=== PATIENT | female | born 1945 | race Caucasian/White ===

== ENCOUNTER 2017-01-24 12:47 | Outpatient (CLI) | payer MEDICARE, OTHER | END 2017-01-24 12:48 | disposition home or self-care (01) | DX: R10.13 Epigastric pain (principal); R16.1 Splenomegaly, not elsewhere classified ==

== ENCOUNTER 2017-06-17 15:23 | Outpatient (CLI) | payer MEDICARE, OTHER ==
[2017-06-17 16:30] LABS: BASOPHILS % (AUTO) 0.4 %; EOSINOPHILS # (AUTO) 0.1 10^3/uL (0.0-0.7); EOSINOPHILS % (AUTO) 1.2 %; HCT - HEMATOCRIT 41.6 % (37.0-47.0); HGB - HEMOGLOBIN 13.8 g/dL (12.0-16.0); LYMPHOCYTES # (AUTO) 1.5 10^3/uL (1.5-3.5); LYMPHOCYTES % (AUTO) 18.2 %; MEAN CORPUSCULAR HEMOGLOBIN 28.1 pg (27.0-31.0); MEAN CORPUSCULAR HGB CONC 33.1 g/dL (32.0-36.0); MEAN CORPUSCULAR VOLUME 85.2 fL (81.0-99.0); MEAN PLATELET VOLUME 7.1 fL (7.9-10.8); MONOCYTES # (AUTO) 0.5 10^3/uL (0.0-1.0); MONOCYTES % (AUTO) 5.7 %; NEUTROPHILS # (AUTO) 6.3 10^3/uL (1.5-6.6); NEUTROPHILS % (AUTO) 74.5 %; NUCLEATED RED BLOOD CELLS AUTO 0.1 /100WBC; RED BLOOD COUNT 4.89 10^6/uL (4.20-5.40); RED CELL DISTRIBUTION WIDTH 14.8 % (12.0-15.0); UNCORRECTED WHITE BLOOD COUNT 8.4 x10^3/uL; WHITE BLOOD COUNT 8.4 x10^3/uL (4.8-10.8)
[2017-06-17 16:39] LABS: CALCIUM 9.2 mg/dL (8.5-10.3); CREATININE 0.9 mg/dL (0.4-1.0); POTASSIUM 4.2 mmol/L (3.5-5.0)
== END 2017-06-17 15:24 | disposition home or self-care (01) ==
LOC: LAB 15:23
PROVIDERS: ATTEND Orthopaedic Surgery
DX: Z01.818 Encounter for other preprocedural examination (principal); M17.12 Unilateral primary osteoarthritis, left knee
CPT/HCPCS: 36415; 80048; 85025; 93005

== ENCOUNTER 2017-06-19 09:10 | Outpatient (CLI) | payer MEDICARE, OTHER | END 2017-06-19 09:11 | disposition home or self-care (01) | LOC: LAB.N 09:10 | PROVIDERS: ATTEND Orthopaedic Surgery | DX: M17.12 Unilateral primary osteoarthritis, left knee (principal) | CPT/HCPCS: 87640 ==

== ENCOUNTER 2017-06-23 10:05 | Inpatient (IN) | payer MEDICARE, OTHER ==
[~2017-06-23 10:05] MED LIST: ceFAZolin 2 GM/50 ML 50 ML IV ONE
[2017-06-23] MEDS ORDERED: LACTATED RINGERS 1,000 ML IV ONE ×2 (10:40→12:27)
[2017-06-23] MEDS ORDERED: SCOPOLAMINE PATCH TOP ONE (10:50)
[2017-06-23] MEDS ORDERED: fentaNYL 100 MCG/2 ML VIAL IVP ONE (11:45)
[2017-06-23] MEDS ORDERED: MIDAZOLAM 2 MG/2 ML VIAL IVP ONE (11:45)
[2017-06-23] MEDS ORDERED: TRANEXAMIC ACID 1,000 MG/10 ML VIAL IV ONE (11:45)
[2017-06-23] MEDS ORDERED: ACETAMINOPHEN 1,000 MG/100 ML 100 ML IV ONE (11:45)
[2017-06-23] MEDS ORDERED: BUPIVACAINE 0.5%-EPI 1:200000 PF 30 ML VIAL SUBQ ONE (13:15)
[2017-06-23] MEDS ORDERED: MORPHINE PF 10 MG/10 ML AMP SUBQ ONE (13:16)
[2017-06-23] MEDS ORDERED: KETOROLAC 30 MG/ML VIAL IM ONE (13:18)
[2017-06-23] MEDS ORDERED: EPINEPHrine 1 MG/ML AMP IM ONE (13:18)
[2017-06-23] MEDS ORDERED: ACETAMINOPHEN 1,000 MG/100 ML 100 ML IV PRN (13:44)
[2017-06-23] MEDS ORDERED: BISACODYL 10 MG SUPP PR PRN (13:44)
[2017-06-23] MEDS ORDERED: ONDANSETRON 4 MG/2 ML VIAL IVP PRN (13:44)
[2017-06-23] MEDS ORDERED: PROCHLORPERAZINE 10 MG/2 ML VIAL IVP PRN (13:44)
[2017-06-23] MEDS ORDERED: SENNA 8.6 MG TABLET PO PRN (13:44)
[2017-06-23] MEDS ORDERED: SODIUM CHLORIDE FLUSH 0.9% 10 ML SYRINGE IVP PRN (13:44)
--- NOTE | 2017-06-23 13:44 | OPERATIVE REPORT ---
Operative Report - General Admit Date: 06/23/17 Procedure Date: 06/23/17 Planned Procedure: Left TKA Pre-Op Diagnosis: Left knee DJD Procedure Performed: Left TKA Post Op Diagnosis: same - Procedure Note Primary Surgeon: kiko Anesthesia Technique: Spinal IV Fluids (mL): 25 Drain/Tube Type: Hemovac
[2017-06-23] MEDS: SODIUM CHLORIDE 0.45% 1,000 ML IV SCH (16:06)
[2017-06-23] MEDS: SODIUM CHLORIDE FLUSH 0.9% 10 ML SYRINGE IVP SCH ×2 (16:06→20:32)
[2017-06-23] MEDS: ASPIRIN 325 MG TABLET PO SCH (16:06)
[2017-06-23] MEDS: ceFAZolin 2 GM/50 ML 50 ML IV SCH (16:07)
--- NOTE | 2017-06-23 17:40 | XRAY Report ---
TWO VIEW LEFT KNEE: 06/23/2017 CLINICAL INDICATION: Postop. Frontal and lateral views of the left knee demonstrate a total knee replacement in place. Suprapatel lar drain is present. There is no evidence of acute fracture or immediate hardware complication. IMPRESSION: EXPECTED POSTOPERATIVE APPEARANCE OF LEFT KNEE REPLACEMENT. JOB #: [id number] EXT JOB #:
--- NOTE | 2017-06-23 18:27 | OPERATIVE REPORT ---
DATE OF SURGERY: 06/23/2017 00:00:00 PREOPERATIVE DIAGNOSIS: Left knee osteoarthritis. POSTOPERATIVE DIAGNOSIS: Left knee osteoarthritis. PROCEDURE: Left total knee replacement arthroplasty. OPERATING SURGEON: Yuri Valdivia MD ANESTHESIA: General and spinal by Gerda __Tarun . INDICATIONS FOR SURGERY: Tigist is a 71-year-old female with progressive severe osteoarthritis of her left knee, predominantly involving the patellofemoral joint, but also the medial compartment of her knee. She has an increasing flexion contracture of her knee and has failed nonoperative treatment. FINDINGS AT SURGERY: The patient's knee joint showed fusion and loose bodies, which were small and cartilaginous. Her bone density was actually fairly good. She had hypertrophic spurring around her femur, her tibia, and her patella. The patient had overgrowth in the notch, but had intact cruciate ligaments. Her menisci, medial and lateral, had remained intact. She had spotty wear on the femur and weightbearing areas, but complete loss of cartilage in the femoral groove and on the patella. DESCRIPTION OF OPERATIVE PROCEDURE: The patient was taken to operating room. She was given a spinal anesthetic, followed by sedation and MAC. In the supine position on the OR table, with the tourniquet up on her thigh, the limb was sterilely prepped and draped in the standard fashion. After a surgical time-out , the tourniquet was inflated, and an incision was performed in a curved medial 8-inch incision and a medial parapatellar incision, with reflection of capsule off the proximal medial tibia and resection of the infrapatellar fat pad for exposure. The menisci were excised, as was the anterior crucial ligament. A central medullary hole was made in the femur after appropriate flexion and placement, and the distal cutting block was applied to cut the femur. Following this, sizing was accomplished for a size 6 left femur. The 4-in-1 cutting block was applied, and these cuts were sequentially made. Small bone fragments were removed, and the central medullary hole was plugged with bone fragments. The tibia was then brought into exposure with retraction, and the residual posterior horns of the menisci were completely excised. The residual ACL was removed, and the posterior osteophytes were removed. The external cutting block was applied and the proximal resection performed using a saw. The tibia was prepared for placement of a size D implant, broaching and drilling, then broaching for the stem, and then performing a trial reduction with a 12 mm insert being stable, showing full range of motion and no laxity. The trial reduction was completed. The knee joint was prepared for cementing of the implants, but before this, the patella was resected down from a 20 mm thickness to 14 mm for reimplantation of a 29 mm diameter all-poly patella. After thorough cleansing of the surfaces, the implants were cemented into place beginning with the tibial baseplate, followed by the femoral component, with then insertion of the tibial poly and finally cementing of the patellar component. Excess cement was removed at each stage, and the knee was ultimately held in extension as the cement hardened. The patient required a very small lateral release of her patella. After this, a drain was placed and closure undertaken with interrupted FiberWire closure of the medial retinaculum and capsule, followed by 0 and 2-0 Vicryl subcutaneous closure, and Monocryl closure of the skin. The patient had a sterile dressing applied and was taken to the recovery room in stable condition. ESTIMATED BLOOD LOSS: Minimal. COMPLICATIONS: None. SPONGE AND NEEDLE COUNTS: Correct. JOB #: [id number] EXT JOB #:[id number] MTDD
[2017-06-23] MEDS: GABAPENTIN 300 MG CAPSULE PO SCH (20:31)
[2017-06-23] MEDS: PANTOPRAZOLE 40 MG TABLET PO SCH (20:32)
[2017-06-23] MEDS: SERTRALINE 50 MG TABLET PO SCH (20:32)
[2017-06-24] MEDS: ceFAZolin 2 GM/50 ML 50 ML IV SCH (00:50)
[2017-06-24] MEDS: oxyCOD/ACETAMIN 5 MG/325 MG TABLET PO PRN ×4 (01:09→17:46)
[2017-06-24] MEDS: SODIUM CHLORIDE 0.45% 1,000 ML IV SCH ×2 (01:59→04:17)
[2017-06-24] MEDS: SODIUM CHLORIDE FLUSH 0.9% 10 ML SYRINGE IVP SCH ×3 (05:10→20:10)
[2017-06-24 05:57] LABS: CALCIUM 8.7 mg/dL (8.5-10.3); CREATININE 0.8 mg/dL (0.4-1.0); POTASSIUM 4.1 mmol/L (3.5-5.0)
[2017-06-24 05:59] LABS: HCT - HEMATOCRIT 37.4 % (37.0-47.0); HGB - HEMOGLOBIN 12.4 g/dL (12.0-16.0)
--- NOTE | 2017-06-24 06:59 | PROVIDER PROGRESS NOTE ---
Subjective - General Admit Date: 06/23/17 Procedure Date: 06/23/17 Post Op Days: 1 Procedure Performed: Left TKA - Review of Systems Wound/Incisions: positive: Healing well, Dressing dry and intact Musculoskeletal: positive: Joint pain Objective - Patient Data Reviewed Vital Signs: Yes Vital Signs: Vital Signs x48h Temp Pulse Resp BP Pulse Ox 06/24/17 04:10 36.9 C 71 18 136/50 H 97 06/23/17 23:46 36.9 C 75 18 136/49 H 95 Weight: Weight 06/22/17 06/23/17 06/24/17 23:59 23:59 23:59 Weight (kg) 103 kg Intake & Output: Intake and Output Totals x24h 06/22/17 06/23/17 06/24/17 23:59 23:59 23:59 Intake Total 2416 2392 Output Total 1702 8375 Balance 711 -433 - Lab Results Lab Results: 06/24/17 05:23 06/24/17 05:23 Other Lab Results: Lab Results x24hrs 06/24/17 06/24/17 Range/Units 05:23 05:23 Hgb 12.4 (12.0-16.0) g/dL Hct 37.4 (37.0-47.0) % Sodium 135 (135-145) mmol/L Potassium 4.1 (3.5-5.0) mmol/L Chloride 103 (101-111) mmol/L Carbon Dioxide 25 (21-32) mmol/L Anion Gap 7.0 (6-13) BUN 10 (6-20) mg/dL Creatinine 0.8 (0.4-1.0) mg/dL Estimated GFR (MDRD) 71 L (>89) Glucose 150 H (70-100) mg/dL Calcium 8.7 (8.5-10.3) mg/dL - Imaging Results Radiology Imaging: positive: EMP read indepedently - Current Medications Current Medications: Current Medications Generic Name Dose Route Start Last Admin Trade Name Freq PRN Reason Stop Dose Admin Aspirin 325 mg 06/23/17 17:00 06/23/17 16:06 Shruthi PO 07/14/17 16:59 325 mg BIDWM RYLAN Administration Gabapentin 300 mg 06/23/17 21:00 06/23/17 20:31 Neurontin PO 300 mg BID RYLAN Administration Sodium Chloride 1,000 mls @ 100 mls/hr 06/23/17 14:00 06/24/17 04:17 Normal Saline 0.45% IV 100 mls/hr .Q10H RYLAN Administration Oxycodone/Acetaminophen 1 tab 06/23/17 13:44 06/24/17 06:15 Percocet 5 Mg/325 Mg PO 1 tab Q4HR PRN Administration PAIN Pantoprazole Sodium 40 mg 06/23/17 21:00 06/23/17 20:32 Protonix PO 40 mg BID RYLAN Administration Sertraline HCl 100 mg 06/23/17 21:00 06/23/17 20:32 Zoloft PO 100 mg BID RYLAN Administration Sodium Chloride 10 ml 06/23/17 14:00 06/24/17 05:10 Normal Saline Flush 0.9% IVP Not Given Q8HR RYLAN - Physical Exam Wound/Incisions: positive: Dressing dry and intact Skin: positive: Warm, Dry Extremities: positive: Joint swelling Neurologic/Psychiatric: positive: Oriented x3, Motor nml, Sensation nml, Mood/ affect nml Impression/Plan - Problem List Problem List: POD #1 Begin PT mobilization, bruno out, IV to lock.
[2017-06-24] MEDS: GABAPENTIN 300 MG CAPSULE PO SCH ×2 (08:47→20:10)
[2017-06-24] MEDS: PANTOPRAZOLE 40 MG TABLET PO SCH ×2 (08:47→20:10)
[2017-06-24] MEDS: amLODIPine 5 MG TABLET PO SCH (08:47)
[2017-06-24] MEDS: SERTRALINE 50 MG TABLET PO SCH ×2 (08:47→20:10)
[2017-06-24] MEDS: ASPIRIN 325 MG TABLET PO SCH ×2 (08:47→17:46)
[2017-06-24] MEDS: ARIPiprazole 5 MG TABLET PO SCH (08:47)
[2017-06-24] MEDS: HYDROmorphone 1 MG/ML SYRINGE IVP PRN ×2 (14:28→23:55)
[2017-06-24] MEDS: POLYETHYLENE GLYCOL 3350 17 GM PACKET PO SCH (17:46)
[2017-06-24] MEDS ORDERED: POLYETHYLENE GLYCOL 3350 17 GM PACKET ONE (17:48)
[2017-06-25] MEDS: oxyCOD/ACETAMIN 5 MG/325 MG TABLET PO PRN ×4 (06:22→21:16)
[2017-06-25] MEDS: SODIUM CHLORIDE FLUSH 0.9% 10 ML SYRINGE IVP SCH ×3 (06:23→21:16)
--- NOTE | 2017-06-25 07:50 | PROVIDER PROGRESS NOTE ---
Subjective - General Admit Date: 06/23/17 Procedure Date: 06/23/17 Post Op Days: 2 Procedure Performed: Left TKA - Review of Systems Wound/Incisions: positive: Dressing dry and intact Musculoskeletal: positive: Joint pain Objective - Patient Data Vital Signs: Vital Signs x48h Temp Pulse Resp BP Pulse Ox 06/25/17 07:30 36.9 C 85 16 142/43 H 95 Weight: Weight 06/23/17 06/24/17 06/25/17 23:59 23:59 23:59 Weight (kg) 103 kg Intake & Output: Intake and Output Totals x24h 06/23/17 06/24/17 06/25/17 23:59 23:59 23:59 Intake Total 2416 4292 500 Output Total 1703 1705 Balance 711 -463 500 - Lab Results Lab Results: 06/24/17 05:23 06/24/17 05:23 - Current Medications Current Medications: Current Medications Generic Name Dose Route Start Last Admin Trade Name Freq PRN Reason Stop Dose Admin Amlodipine Besylate 5 mg 06/24/17 09:00 06/24/17 08:47 Norvasc PO 5 mg DAILY RYLAN Administration Aripiprazole 2 mg 06/24/17 09:00 06/24/17 08:47 Abilify PO 2 mg DAILY RYLAN Administration Aspirin 325 mg 06/23/17 17:00 06/24/17 17:46 Shruthi PO 07/14/17 16:59 325 mg BIDWM RYLAN Administration Gabapentin 300 mg 06/23/17 21:00 06/24/17 20:10 Neurontin PO 300 mg BID RYLAN Administration Hydromorphone HCl 1 mg 06/23/17 13:44 06/24/17 23:55 Dilaudid Inj IVP 1 mg Q2HR PRN Administration Breakthrough Pain Oxycodone/Acetaminophen 1 tab 06/23/17 13:44 06/25/17 06:22 Percocet 5 Mg/325 Mg PO 1 tab Q4HR PRN Administration PAIN Pantoprazole Sodium 40 mg 06/23/17 21:00 06/24/17 20:10 Protonix PO 40 mg BID RYLAN Administration Polyethylene Glycol 17 gm 06/24/17 18:00 06/24/17 17:46 Miralax PO 17 gm DAILY RYLAN Administration Sertraline HCl 100 mg 06/23/17 21:00 06/24/17 20:10 Zoloft PO 100 mg BID RYLAN Administration Sodium Chloride 10 ml 06/23/17 14:00 06/25/17 06:23 Normal Saline Flush 0.9% IVP 10 ml Q8HR RYLAN Administration Sodium Chloride 10 ml 06/23/17 13:44 06/24/17 23:55 Normal Saline Flush 0.9% IVP 10 ml PRN PRN Administration NEEDED PER PROVIDER ORDERS
[2017-06-25] MEDS ORDERED: ZOLPIDEM 5 MG TABLET PO PRN (07:56)
[2017-06-25] MEDS: ACETAMINOPHEN 325 MG TABLET PO PRN ×2 (08:34→13:08)
[2017-06-25] MEDS: SERTRALINE 50 MG TABLET PO SCH ×2 (08:34→21:15)
[2017-06-25] MEDS: POLYETHYLENE GLYCOL 3350 17 GM PACKET PO SCH (08:34)
[2017-06-25] MEDS: GABAPENTIN 300 MG CAPSULE PO SCH ×2 (08:34→21:15)
[2017-06-25] MEDS: ASPIRIN 325 MG TABLET PO SCH ×2 (08:34→18:04)
[2017-06-25] MEDS: ARIPiprazole 5 MG TABLET PO SCH (08:34)
[2017-06-25] MEDS: amLODIPine 5 MG TABLET PO SCH (08:34)
[2017-06-25] MEDS: PANTOPRAZOLE 40 MG TABLET PO SCH ×2 (08:34→21:16)
[2017-06-25] MEDS: HYDROmorphone 1 MG/ML SYRINGE IVP PRN ×2 (10:00→18:04)
[2017-06-26] MEDS: ACETAMINOPHEN 325 MG TABLET PO PRN (00:19)
[2017-06-26] MEDS: SODIUM CHLORIDE FLUSH 0.9% 10 ML SYRINGE IVP SCH (06:44)
[2017-06-26] MEDS: oxyCOD/ACETAMIN 5 MG/325 MG TABLET PO PRN ×2 (06:45→13:26)
[2017-06-26 07:32] VITALS: BP 137/57
[2017-06-26] MEDS: GABAPENTIN 300 MG CAPSULE PO SCH (08:20)
[2017-06-26] MEDS: amLODIPine 5 MG TABLET PO SCH (08:20)
[2017-06-26] MEDS: ASPIRIN 325 MG TABLET PO SCH (08:20)
[2017-06-26] MEDS: SERTRALINE 50 MG TABLET PO SCH (08:20)
[2017-06-26] MEDS: POLYETHYLENE GLYCOL 3350 17 GM PACKET PO SCH (08:20)
[2017-06-26] MEDS: ARIPiprazole 5 MG TABLET PO SCH (08:20)
[2017-06-26] MEDS: PANTOPRAZOLE 40 MG TABLET PO SCH (08:20)
--- NOTE | 2017-06-26 10:34 | Discharge Plan ---
Discharge Plan Disposition: Home, Self Care Condition: Good Prescriptions: oxyCODONE/ACET 5/325 [Percocet 5 mg/325 mg] 1 tab PO Q4HR PRN #30 tablet PRN Reason: Pain Aspirin [Shruthi] 325 mg PO BIDWM #30 tablet Polyethylene Glycol 3350 [Miralax] 17 gm PO DAILY #20 packet Diet: Regular Activity Restrictions: Wt Bearing as Tolerated Shower Restrictions: Yes (wound kept dry) Driving Restrictions: Yes (no driving) Assistance Devices: Walker Weight Bearing: Other (Weight bear as tolerated L. LE) Instruction Topics: Knee Replace Total, Knee Replace, Knee Replace Total Dc Follow-Up Care: Outpatient Rehab - PT No Smoking: If you smoke, Please STOP! Call for help. Follow-up with: Bree Can PA-C [Primary Care Provider] - Yuri Valdivia MD [Provider Admit Priv/Credential] -
--- NOTE | 2017-06-29 16:20 | DISCHARGE SUMMARY ---
DATE OF ADMISSION: 06/23/2017 DATE OF DISCHARGE: 06/26/2017 ADMISSION DIAGNOSIS: Left knee osteoarthritis. OPERATIVE PROCEDURE: On 06/23/2017 left total knee replacement arthroplasty. HISTORY OF PRESENT ILLNESS: The patient is a 71-year-old female with end-stage osteoarthritis of her left knee, who presented for elective total knee arthroplasty. The patient had failed conservative ca re and had significant functional deficits because of knee pain and arthritis. The patient's prior me dical history and exam are documented in her admission record. HOSPITAL COURSE: The patient was admitted, underwent the surgery, and tolerated it well. Postoperativ reji, the patient was placed on the medical/surgical floor, receiving standard care post total knee ar throplasty, including IV antibiotics, pain medication, and early physical therapy. At the time of dis charge, the patient was tolerating p.o. pain medication. She was tolerating subcutaneous Lovenox for DVT prophylaxis, and her wound was healing well without any evidence of wound breakdown, complication , or infection. At this point, she was discharged to home to follow up in the clinic within a week an d have home rehab scheduled after discharge. JOB #: [id number] EXT JOB #:[id number]
== END 2017-06-26 13:32 | disposition home or self-care (01) | DRG 470 ==
LOC: MS3 10:05 → MS2 12:49
PROVIDERS: ADMIT Orthopaedic Surgery; ATTEND Orthopaedic Surgery
PROC: 0SRD0J9 Replacement of Left Knee Joint with Synthetic Substitute, Cemented, Open Approach (ICD-10-PCS; principal; 2017-06-23 11:00)
DX: M17.0 Bilateral primary osteoarthritis of knee (principal); I47.1 Supraventricular tachycardia; J84.10 Pulmonary fibrosis, unspecified; I10 Essential (primary) hypertension; K21.9 Gastro-esophageal reflux disease without esophagitis; F32.9 Major depressive disorder, single episode, unspecified; K52.9 Noninfective gastroenteritis and colitis, unspecified; Z87.891 Personal history of nicotine dependence; Z86.19 Personal history of other infectious and parasitic diseases
CPT/HCPCS: 36415; 80048; 85014; 85018

== ENCOUNTER 2017-07-25 08:58 | Emergency (ER) | payer MEDICARE, OTHER ==
--- NOTE | 2017-07-25 09:22 | ED Physician Documentation ---
PD HPI LOWER EXT INJURY - Stated complaint Stated Complaint: R HEEL PAIN - History obtained from History obtained from: Patient - History of Present Illness PD HPI LOW EXT INJURY LOCATION: Right, Ankle (heel). No: Sole / plantar Type of injury: No: Fall, Twist Timing - onset: How many weeks ago Timing - duration: Weeks Timing - details: Gradual onset, Still present (has increased the past several days to marked pain with walking, almost unable to walk due to it.) Improved by: Other (not with ortho boot use). No: Meds Worsened by: Moving, Palpating, Other (walking) Associated symptoms: Swelling (back of heel). No: Weakness, Numbness, Discolored Similar symptoms before: Diagnosis (achilles tendonitis many years ago and improved with cortisone injection and using ankle boot.) Recently seen: Not recently seen Review of Systems Constitutional: denies: Fever, Chills Nose: denies: Rhinorrhea / runny nose, Congestion Throat: denies: Sore throat Skin: denies: Rash, Lesions PD PAST MEDICAL HISTORY - Past Medical History Cardiovascular: Hypertension Respiratory: Pneumonia Neuro: Headache/migraine, Motion sickness Endocrine/Autoimmune: None GI: GERD, Hiatal hernia, Other : Incontinence, Other HEENT: Chronic vision loss, Other Psych: Depression Musculoskeletal: Osteoarthritis, Other (no gout) Derm: None - Past Surgical History General: Colonoscopy, EGD /RECRUITING ASSOCIATE: Tubal ligation, Other HEENT: Cataracts - Present Medications Home Medications: Ambulatory Orders Medication Instructions Recorded Confirmed Aripiprazole [Abilify] 2 mg PO DAILY 04/10/15 06/23/17 Meloxicam [Mobic] 7.5 mg PO BID 04/10/15 06/17/17 Sertraline HCl [Zoloft] 100 mg PO BID 04/10/15 06/23/17 amLODIPine [Norvasc] 5 mg PO DAILY 04/10/15 06/23/17 Ciclesonide [Omnaris] 1 spray SHRADDHA DAILY 04/11/15 06/23/17 Zolpidem [Ambien] 10 mg PO DAILY 04/11/15 06/23/17 Acetaminophen 500 mg PO DAILY 06/17/17 06/23/17 Albuterol Sulf [Ventolin Hfa 1 puffs IH DAILY PRN 06/17/17 06/23/17 Inhaler] Fluticasone 44 Mcg [Flovent] 1 puffs IH DAILY PRN 06/17/17 06/23/17 Gabapentin 300 mg PO BID 06/17/17 06/23/17 Montelukast [Singulair] 10 mg PO DAILY 06/17/17 06/23/17 Pantoprazole [Protonix] 40 mg PO BID 06/17/17 06/23/17 Prochlorperazine [Compazine] 5 mg PO DAILY PRN 06/17/17 06/23/17 Aspirin [Shruthi] 325 mg PO BIDWM #30 tablet 06/26/17 Polyethylene Glycol 3350 [Miralax] 17 gm PO DAILY #20 packet 06/26/17 oxyCODONE/ACET 5/325 [Percocet 5 1 tab PO Q4HR PRN #30 tablet 06/26/17 mg/325 mg] Oxycodone HCl/Acetaminophen 1 each PO Q6H PRN #8 tablet 07/25/17 [Percocet 5-325 mg Tablet] - Allergies Allergies/Adverse Reactions: Allergies Allergy/AdvReac Type Severity Reaction Status Date / Time citalopram hydrobromide * Allergy Unknown Unknown Verified 06/17/17 14:43 [From Celexa] SUSHMA Inhibitors Allergy Respiratory Verified 06/17/17 17:39 codeine Allergy Anaphylaxis Verified 04/10/15 13:45 doxycycline Allergy Anaphylaxis Verified 04/10/15 13:45 hydrocodone bitartrate * Allergy Nausea Verified 04/10/15 13:47 [From Vicodin] PD ED PE NORMAL - Vitals Vital signs reviewed: Yes - General General: Alert and oriented X 3, Well developed/nourished - Back Back: No spinal TTP - Derm Derm: Normal color, Warm and dry, No rash - Extremities Extremities: Other (right achilles distally with marked tenderness. No redness nor skin sore. Plantar foot not tender. Pain with passive forsiflexion. ) Results - Vitals Vitals: Vital Signs - 24 hr 07/25/17 07/25/17 09:23 10:53 Temperature 35.9 C L 36.1 C L Heart Rate 92 72 Respiratory 18 20 Rate Blood Pressure 139/74 H 148/71 H O2 Saturation 99 97 Oxygen O2 Source Room air PD MEDICAL DECISION MAKING - ED course Complexity details: considered differential (she has ortho boot at home and advised to use that. At her request, did Kenalog and marcaine injection in tendon sheath area near back of heel without problems, after discussion and agreement with her that she would be using boot with walking for 1-2 weeks to support the tendon, as injections can weaken as it also reduces the inflammation. Will follow up with Ortho. ), d/w patient Departure - Departure Disposition: 01 Home, Self Care Clinical Impression: Achilles tendonitis Qualifiers: Laterality: right Qualified Code(s): M76.61 - Achilles tendinitis, right leg Condition: Stable Record reviewed to determine appropriate education?: Yes Instructions: Achilles Tendonitis Follow-Up: Bree Can PA-C [Primary Care Provider] - Prescriptions: Oxycodone HCl/Acetaminophen [Percocet 5-325 mg Tablet] 1 each PO Q6H PRN #8 tablet PRN Reason: Pain Comments: Where your walking boot when up and around for the next 7-10 days. Continue some anti-inflammatories such as ibuprofen or naproxen twice daily at home. Follow-up with your primary care regarding this. They potentially could add some physical therapy or local treatments. Add the Percocet half to 1 tablet every 8 hours as needed for pain. Discharge Date/Time: 07/25/17 11:07
[2017-07-25] MEDS ORDERED: TRIAMCINOLONE 40 MG/ML VIAL IM STA (09:33)
[2017-07-25] MEDS ORDERED: BUPIVACAINE 0.5% PF 30 ML VIAL SUBQ STA (09:33)
[2017-07-25] MEDS ORDERED: TRIAMCINOLONE 40 MG/ML VIAL ONE (09:55)
[2017-07-25] MEDS ORDERED: BUPIVACAINE 0.5% PF 30 ML VIAL ONE (09:55)
[2017-07-25 10:53] VITALS: BP 148/71
== END 2017-07-25 11:07 | disposition home or self-care (01) ==
LOC: ED 08:58
DX: M76.61 Achilles tendinitis, right leg (principal); I10 Essential (primary) hypertension
CPT/HCPCS: 20550; 99283

== ENCOUNTER 2017-08-31 08:00 | Outpatient (CLI) | payer MEDICARE, OTHER | END 2017-08-31 23:59 | disposition home or self-care (01) | LOC: RT 08:00 | PROVIDERS: ATTEND Orthopaedic Surgery | DX: Z01.810 Encounter for preprocedural cardiovascular examination (principal); M66.871 Spontaneous rupture of other tendons, right ankle and foot; S86.001A Unspecified injury of right Achilles tendon, initial encounter | CPT/HCPCS: 93005 ==

== ENCOUNTER 2017-09-01 10:26 | Day surgery (SDC) | payer MEDICARE, OTHER ==
[~2017-09-01 10:26] MED LIST changes: +ACETAMINOPHEN 1,000 MG/100 ML 100 ML IV ONE; +ceFAZolin 2 GM/50 ML 2 GM/50 ML BAG IV ONE; -ceFAZolin 2 GM/50 ML 50 ML IV ONE
[2017-09-01] MEDS ORDERED: LACTATED RINGERS 1,000 ML IV ONE (10:57)
[2017-09-01] MEDS ORDERED: SCOPOLAMINE PATCH TOP ONE (11:18)
[2017-09-01] MEDS ORDERED: BUPIVACAINE 0.25% PF 30 ML VIAL SUBQ ONE ×2 (12:43)
[2017-09-01] MEDS ORDERED: ACETAMINOPHEN 1,000 MG/100 ML 100 ML IV ONE (13:45)
[2017-09-01] MEDS ORDERED: DEXAMETHASONE 4 MG/ML VIAL IVP ONE (13:45)
[2017-09-01] MEDS ORDERED: PROPOFOL 200 MG/20 ML VIAL IVP ONE (13:45)
[2017-09-01] MEDS ORDERED: fentaNYL 100 MCG/2 ML VIAL IVP ONE (13:45)
[2017-09-01] MEDS ORDERED: LIDOCAINE-MPF 2% 5 ML VIAL IM ONE (13:45)
[2017-09-01] MEDS ORDERED: ONDANSETRON 4 MG/2 ML VIAL IVP ONE (13:45)
[2017-09-01] MEDS ORDERED: MIDAZOLAM 2 MG/2 ML VIAL IVP ONE (13:45)
[2017-09-01] MEDS ORDERED: ONDANSETRON 4 MG/2 ML VIAL ONE (14:48)
--- NOTE | 2017-09-01 15:38 | OPERATIVE REPORT ---
DATE OF SURGERY: 09/01/2017 00:00:00 PREOPERATIVE DIAGNOSIS: Right Achilles tendon rupture. POSTOPERATIVE DIAGNOSIS: Right Achilles tendon rupture. NAME OF PROCEDURE: Primary repair of right distal Achilles tendon. SURGEON: Yuri Valdivia MD ANESTHESIA: Spinal and popliteal block and local. INDICATIONS FOR SURGERY: The patient is a 71-year-old female who was in the phase of preparation for undergoing elective total knee arthroplasty of her right knee, who suffered a ground-level fall last week and ruptured her right Achilles at the calcaneal insertion site. The patient prerupture had had chronic tendonitis, and post rupture had total pain relief, but had a large defect and some weakness in her calf. She was evaluated in the clinic and it was felt necessary to do a primary repair of her Achilles as it was completely displaced off the calcaneal insertion site. FINDINGS AT SURGERY: The patient's gap in the distal calcaneus was readily evident on clinical exam. There was minimal swelling. At open surgery, there was mild hematoma in the sheath and the end of the Achilles tendon was bulbous, enlarged and appeared to have calcific degeneration in the tissue itsel f. The patient had a prominent Johnathan spur and fairly intact tissue around the calcaneal insertion s ite. DESCRIPTION OF OPERATIVE PROCEDURE: The patient was taken to the operating room, given a popliteal an d spinal block and was placed prone. Tourniquet was placed on her thigh. Her leg and ankle were steri yoli prepped and draped in standard fashion. Under tourniquet control, a 6-inch incision was made dawna tered on the area of the defect and hockey-sticking across the back of the calcaneus. This allowed fu ll exposure of the calcaneal insertion site on the posterior aspect where there were residual small t ags of degenerative tissue evident, which were removed. The stump of the tendo Achilles was markedly abnormal, and about 1/2-3/4 of an inch of this required debriding away from amorphous and mucoid dege neration and some metaplasia into calcium. This area was debrided away. The residual stump was thinne d somewhat and then a Krackow suture of #5 FiberWire was placed up one side and down the other. A Anthony ek G2 anchor was placed in the superior aspect of the calcaneus and then a second G2 anchor placed. T he drill hole was made across the calcaneus for passage of the #5 suture and it was passed and tied d own and brought the suture directly over the G2 anchors where these were then tied down to give excel lent apposition of tendon material to bone that was freshened. The area was then secured in that the ankle could be dorsiflexed to 10 degrees without undue pressure and no disruption of the repair. The tourniquet was deflated, cautery was used to control minor bleeding. The wound was irrigated. Fatou sure was with 3-0 Vicryl in interrupted fashion in subcutaneous tissue, followed by a 3-0 Prolene fatou sure, interrupted, of skin. Infiltration was performed with Marcaine without epinephrine 0.25%. A javad theodore-containing dressing was applied, followed by a below-knee well-padded fiberglass cast. The patien t was then recovered to a supine position on a hospital bed and taken to the recovery room in stable condition. ESTIMATED BLOOD LOSS: For the procedure was less than 15 mL. COMPLICATIONS: None. SPONGE AND NEEDLE COUNTS: Correct. JOB #: [id number] EXT JOB #:[id number]
[2017-09-01 17:22] VITALS: BP 126/62
== END 2017-09-01 10:27 | disposition home or self-care (01) ==
LOC: SDS 10:26
PROVIDERS: ATTEND Orthopaedic Surgery
PROC: 0LQN0ZZ Repair Right Lower Leg Tendon, Open Approach (ICD-10-PCS; principal; 2017-09-01 11:45)
DX: S86.011A Strain of right Achilles tendon, initial encounter (principal); W18.30XA Fall on same level, unspecified, initial encounter; I10 Essential (primary) hypertension; Z87.891 Personal history of nicotine dependence
CPT/HCPCS: 27650; 93005; C1713; J0131; J0690; J3490; J7120